=== PATIENT | male | born 2000 | race Caucasian/White ===

== ENCOUNTER 2019-07-02 11:31 | Emergency (ER) | payer BC ==
[~2019-07-02] VITALS: Ht 193 cm; Wt 95.5 kg
[2019-07-02 11:54] VITALS: BP 142/67
[2019-07-02 12:57] LABS: BASO % 0.4 % (0.0-2.0); EOS # 0.1 (0.0-0.7); EOS % 1.2 % (0-4.0); GRAN # 4.9 (1.4-6.5); GRAN % 67.9 % (42.2-75.2); HEMATOCRIT 45.9 % (36.0-47.0); HEMOGLOBIN 16.1 g/dl (12.5-16.1); LYMPH # 1.5 (1.2-3.4); LYMPH % 20.4 % (20.0-51.0); MEAN CELL VOLUME 88 fl (80.0-95.0); MEAN CORPUSCULAR HEMOGLOBIN 31 pg (26.0-32.0); MEAN CORPUSCULAR HGB CONC 35 g/dl (33.0-37.0); MEAN PLATELET VOLUME 8.8 fl (7.4-10.4); MONO # 0.7 (0.1-0.6); PLATELET COUNT 230 K/mm3 (130-400); RED BLOOD COUNT 5.24 M/mm3 (4.20-5.60); REDCELL DISTRIBUTION WIDTH-CV 11.9 % (11.5-14.5)
[2019-07-02 13:09] LABS: ALBUMIN 4.7 gm/dL (3.5-5.0); BILIRUBIN,TOTAL 1.1 mg/dL (0.0-1.0); CALCIUM 9.3 mg/dL (8.4-10.2); CREATININE, serum 0.78 (0.66-1.25); TOTAL PROTEIN 7.4 gm/dL (6.4-8.2)
[2019-07-02 13:25] LABS: PROLACTIN 12.4 ng/mL (3.7-17.9)
[2019-07-02] MEDS ORDERED: DEPAKENE250 MG PO (13:39)
[2019-07-02 14:31] VITALS: PULSE 79; TEMP 98.1
== END 2019-07-02 14:30 | disposition home or self-care (01) ==
LOC: COL.ER 11:31
PROVIDERS: Family Medicine
DX: G40.909 Epilepsy, unspecified, not intractable, without status epilepticus (principal)